=== PATIENT | male | born 1970 | race Caucasian/White ===

== ENCOUNTER 2016-09-05 16:36 | Emergency (ER) | payer OTHER ==
[~2016-09-05] VITALS: Ht 177.8 cm; Wt 76.8 kg
[~2016-09-05 16:36] MED LIST: CLON1TAB3 PO
[2016-09-05 16:41] VITALS: Ht 177.8 cm; Wt 76.8 kg
[2016-09-05] MEDS ORDERED: SODIUM CHLORIDE 0.9% 1000ML 1,000 ML IV STA (17:36)
[2016-09-05] MEDS ORDERED: OPTIRAY 320 IV PRN (17:45)
[2016-09-05 17:55] LABS: BASO ABS # 0.06 K/uL (0-0.2); COMPLETE YES; EOS % 5.1 %; HEMATOCRIT 41.3 % (42-52); LYMPH % 31.9 %; MEAN CELL VOLUME 85.5 fL (80-100); MEAN CORPUSCULAR HEMOGLOBIN 30.8 pg (25-34); MEAN CORPUSCULAR HGB CONC 36.1 g/dl (32-36); MEAN PLATELET VOLUME 9.7 fL (7.4-10.4); MONO % 4.8 %; NEUT % 57.2 %; PLATELET COUNT 194 K/uL (130-400); RED BLOOD COUNT 4.83 M/uL (4.7-6.1); WHITE BLOOD COUNT 6.26 K/uL (4.8-10.8)
[2016-09-05 18:05] LABS: URINE APPEARANCE CLEAR (CLEAR); URINE BILIRUBIN NEG (NEG); URINE COLOR YELLOW; URINE NITRITE NEG (NEG); UROBILINOGEN NEG (NEG); ZZUR CULT IF INDIC CLEAN CATCH NO
[2016-09-05 18:07] LABS: MANUAL MICROSCOPIC REQUIRED? NO; REVIEW REQ? NO
[2016-09-05 18:15] LABS: BUN/CREATININE RATIO 8.2 (10-20); CALCIUM 9.5 mg/dl (8.5-10.1); POTASSIUM 3.9 mmol/L (3.5-5.1)
[2016-09-05 18:18] LABS: ALB/GLOB RATIO 1.3 (0.9-2)
--- NOTE | 2016-09-05 18:49 | DIAGNOSTIC IMAGING REPORT ---
ABDOMEN AND PELVIS CT WITH IV CONTRAST CT DOSE: 271.98 mGy.cm HISTORY: Pain. Nausea. lower abdominal pain, nausea, weight loss TECHNIQUE: Multiaxial CT images of the abdomen and pelvis were performed following the use of intravenous contrast. COMPARISON STUDY: None. FINDINGS: The lung bases are clear. The liver, spleen, gallbladder, pancreas, kidneys, and adrenal glands are within normal limits. No bowel wall thickening or obstruction. The pelvic organs are unremarkable. No suspicious lytic or blastic osseous lesions. IMPRESSION: No significant abnormality identified within the abdomen or pelvis. Electronically signed by: Jacky Brown M.D. 09/05/2016 6:47 PM
--- NOTE | 2016-09-05 19:14 | EMERGENCY ROOM VISIT NOTE ---
History First contact with patient: 17:23 Chief Complaint: ABDOMINAL PAIN Stated Complaint: STABBING ABD/BACK PAIN, TIGHTNESS IN LEGS, FATIGUE Nursing Triage Summary: Pt c/o mid upper abd pain, RLQ abd pain and bilateral back pain as well as bilateral leg fatigue. Began 3 weeks ago. Associates nausea and diarrhea. Patient states he has lost 12 pounds but is able to eat. History of Present Illness The patient is a 46 year old male who presents to the Emergency Room with complaints of ongoing abdominal pain, leg cramping and fatigue. The patient reports that he has had intermittent intense abdominal pain over the past several weeks. He reports he has had pain in the mid abdomen as well as the lower abdomen. He also reports he has bilateral "kidney pain." He complains of intermittent cramping in both of his legs. He has alternating constipation and diarrhea. He reports associated nausea at times. He was seen by his primary care provider for these symptoms and reports he had blood work, urinalysis and a kidney ultrasound, all of which were normal. The patient was given a prescription for Bactrim due to urinary urgency. The patient does report that he has lost 12 pounds over the past several weeks. He has had to miss work several days due to his symptoms. He denies any chest pain, shortness of breath, blood in his stools, or vomiting. He denies any history of abdominal surgeries. He denies any urinary symptoms. Review of Systems A complete 10-point Review of Systems was discussed with the patient, with pertinent positives and negatives listed in the History of Present Illness. All remaining Review of Systems questions can be considered negative unless otherwise specified. Past Medical/Surgical History Surgical Problems: (1) H/O wisdom tooth extraction Family History No pertinent family history Social History Smoking Status: Former Smoker Marital Status: Housing Status: lives with family Occupation Status: employed Current/Historical Medications Scheduled PRN Clonazepam (Klonopin), 0.25 MG PO HS PRN for Sleep Allergies Coded Allergies: Aspirin (Verified Allergy, Intermediate, HIVES, 08/28/14) Ibuprofen (Verified Allergy, Intermediate, HIVES, 08/28/14) Physical Exam Vital Signs Date Time Temp Pulse Resp B/P Pulse Ox O2 Delivery O2 Flow Rate FiO2 09/05/16 19:26 36.8 86 16 147/97 97 09/05/16 18:36 89 16 107/66 96 09/05/16 18:13 86 18 141/89 99 09/05/16 16:41 36.8 111 18 163/96 98 Room Air Pain Rating (0-10): 2.0 Physical Exam VITALS: Vitals are noted on the nurse's note and reviewed by myself. Vital signs stable. GENERAL: This is a 46-year-old male, in no acute distress, nondiaphoretic, well- developed well-nourished. SKIN: Capillary reflex less than 2 seconds. HEENT: Normocephalic. PERRLA. EOMI. Nares patent. Mucous membranes moist. Neck is supple without nuchal rigidity. HEART: Regular rate and rhythm without murmurs gallops or rubs. LUNGS: Clear to auscultation bilaterally without wheezes, rales or rhonchi. No retractions or accessory muscle use. ABDOMEN: Positive bowel sounds x 4. Abdomen is soft with mild epigastric tenderness. There is no guarding or rebound tenderness. MUSCULOSKELETAL: Full range of motion and 5/5 strength throughout. NEURO: Patient was alert and oriented to person place and time. Normal sensation to light and sharp touch. Medical Decision & Procedures ER Provider Diagnostic Interpretation: ABDOMEN AND PELVIS CT WITH IV CONTRAST FINDINGS: The lung bases are clear. The liver, spleen, gallbladder, pancreas, kidneys, and adrenal glands are within normal limits. No bowel wall thickening or obstruction. The pelvic organs are unremarkable. No suspicious lytic or blastic osseous lesions. IMPRESSION: No significant abnormality identified within the abdomen or pelvis. Laboratory Results 09/05/16 17:45 Red Blood Count 4.83, Mean Corpuscular Volume 85.5, Mean Corpuscular Hemoglobin 30.8, Mean Corpuscular Hemoglobin Concent 36.1, Mean Platelet Volume 9.7, Neutrophils (%) (Auto) 57.2, Lymphocytes (%) (Auto) 31.9, Monocytes (%) (Auto) 4.8, Eosinophils (%) (Auto) 5.1, Basophils (%) (Auto) 1.0, Neutrophils # (Auto) 3.58, Lymphocytes # (Auto) 2.00, Monocytes # (Auto) 0.30, Eosinophils # (Auto) 0.32, Basophils # (Auto) 0.06 09/05/16 17:45 Test 09/05/16 17:45 09/05/16 17:50 White Blood Count 6.26 K/uL (4.8-10.8) Red Blood Count 4.83 M/uL (4.7-6.1) Hemoglobin 14.9 g/dL (14.0-18.0) Hematocrit 41.3 % (42-52) Mean Corpuscular Volume 85.5 fL (80-100) Mean Corpuscular Hemoglobin 30.8 pg (25-34) Mean Corpuscular Hemoglobin Concent 36.1 g/dl (32-36) Platelet Count 194 K/uL (130-400) Mean Platelet Volume 9.7 fL (7.4-10.4) Neutrophils (%) (Auto) 57.2 % Lymphocytes (%) (Auto) 31.9 % Monocytes (%) (Auto) 4.8 % Eosinophils (%) (Auto) 5.1 % Basophils (%) (Auto) 1.0 % Neutrophils # (Auto) 3.58 K/uL (1.4-6.5) Lymphocytes # (Auto) 2.00 K/uL (1.2-3.4) Monocytes # (Auto) 0.30 K/uL (0.11-0.59) Eosinophils # (Auto) 0.32 K/uL (0-0.5) Basophils # (Auto) 0.06 K/uL (0-0.2) RDW Standard Deviation 38.2 fL (36.4-46.3) RDW Coefficient of Variation 12.1 % (11.5-14.5) Immature Granulocyte % (Auto) 0.0 % Immature Granulocyte # (Auto) 0.00 K/uL (0.00-0.02) Anion Gap 8.0 mmol/L (3-11) Est Creatinine Clear Calc Drug Dose 97.3 ml/min Estimated GFR () 105.6 Estimated GFR (Non- 91.1 BUN/Creatinine Ratio 8.2 (10-20) Calcium Level 9.5 mg/dl (8.5-10.1) Total Bilirubin 0.4 mg/dl (0.2-1) Aspartate Amino Transf (AST/SGOT) 16 U/L (15-37) Alanine Aminotransferase (ALT/SGPT) 41 U/L (12-78) Alkaline Phosphatase 48 U/L (45-117) Total Creatine Kinase 76 U/L (39-308) Total Protein 7.5 gm/dl (6.4-8.2) Albumin 4.2 gm/dl (3.4-5.0) Globulin 3.3 gm/dl (2.5-4.0) Albumin/Globulin Ratio 1.3 (0.9-2) Lipase 139 U/L (73-393) Urine Color YELLOW Urine Appearance CLEAR (CLEAR) Urine pH 5.0 (4.5-7.5) Urine Specific [place] 1.000 (1.000-1.030) Urine Protein NEG (NEG) Urine Glucose (UA) NEG (NEG) Urine Ketones NEG (NEG) Urine Occult Blood NEG (NEG) Urine Nitrite NEG (NEG) Urine Bilirubin NEG (NEG) Urine Urobilinogen NEG (NEG) Urine Leukocyte Esterase NEG (NEG) Medications Administered Medications (Trade) Dose Ordered Sig/Trey Route Start Time Stop Time Status Last Admin Dose Admin Sodium Chloride (Nss 1000ml) 1,000 ml @ 999 mls/hr Q1H1M STAT IV 09/05/16 17:36 09/05/16 18:36 DC 09/05/16 17:48 999 MLS/HR Medical Decision Differential diagnosis includes appendicitis, gastroenteritis, colitis, malignancy, electrolyte abnormality, infection, among others. The patient was evaluated as above. Labs were drawn and IV access was obtained. Imaging studies were performed and read by radiology as above. The patient was medicated with 1 L normal saline solution. The patient was reassessed multiple times during their stay in the emergency department and remained in stable condition. The patient is a 46-year-old male who presents today complaining of abdominal pain, fatigue, cramping and other nonspecific symptoms. Labs revealed no leukocytosis, anemia or electrolyte abnormalities. Urinalysis was not suggestive of infection. CT scan of the abdomen and pelvis was performed without any acute findings. I am unsure the cause of the patient's symptoms. They have been ongoing for several weeks. At this point, I would certainly expect to see CT findings if the patient had an infectious source. The patient was encouraged to follow up with his primary care provider for ongoing evaluation of his symptoms. Based on the patient's presentation, lab results, and imaging studies, I feel the patient is stable for outpatient treatment. Discharge instructions were reviewed with the patient. The patient verbalized understanding of my assessment and treatment plan and was discharged home in good condition. Impression Primary Impression: Right lower quadrant abdominal pain Departure Information Dispostion Home / Self-Care Condition GOOD Referrals Ganesh Da Silva D.OMasha (PCP) Patient Instructions A Signature Page Additional Instructions Labs and CT scan today were normal. Follow-up with your primary care provider within 2-3 days for further evaluation of these symptoms. Return to the emergency department for any new/concerning symptoms.
[2016-09-05 19:26] VITALS: BP 147/97; PULSE 86; TEMP 36.8; O2SAT 97
[2017-03-22] MEDS ORDERED: NALT50TA5 PO (09:12)
[2017-07-11] MEDS ORDERED: PYRI100T4 PO (09:29)
[2017-07-11] MEDS ORDERED: GARL1000 (09:29)
[2017-07-11] MEDS ORDERED: VITAMIN E (09:29)
== END 2016-09-05 19:27 | disposition home or self-care (01) ==
LOC: C.EDB 16:38 → C.EDC 19:27
DX: R10.31 Right lower quadrant pain (principal); R25.2 Cramp and spasm; R53.83 Other fatigue; Z87.891 Personal history of nicotine dependence

== ENCOUNTER 2017-01-03 10:42 | Emergency (ER) | payer OTHER ==
[~2017-01-03] VITALS: Ht 177.8 cm; Wt 75.5 kg
[2017-01-03 10:45] VITALS: TEMP 36.7
[2017-01-03] MEDS ORDERED: CELE1CAP28 PO (11:07)
[2017-01-03] MEDS ORDERED: DFL150 PO (11:07)
[2017-01-03] MEDS ORDERED: RANI150T2 PO (11:07)
[2017-01-03 11:33] VITALS: O2SAT 99; Ht 177.8 cm; Wt 75.5 kg
[2017-01-03 11:40] LABS: BASO % 0.5 %; BASO ABS # 0.03 K/uL (0-0.2); COMPLETE YES; EOS % 4.5 %; HEMATOCRIT 43.5 % (42-52); IG% 0.2 %; LYMPH % 31.3 %; MEAN CELL VOLUME 87.3 fL (80-100); MEAN CORPUSCULAR HEMOGLOBIN 31.1 pg (25-34); MEAN CORPUSCULAR HGB CONC 35.6 g/dl (32-36); MEAN PLATELET VOLUME 9.9 fL (7.4-10.4); MONO % 4.3 %; NEUT % 59.2 %; PLATELET COUNT 184 K/uL (130-400); RED BLOOD COUNT 4.98 M/uL (4.7-6.1); WHITE BLOOD COUNT 5.75 K/uL (4.8-10.8)
[2017-01-03 11:54] LABS: INR 1.1 (0.9-1.1); PROTHROMBIN TIME (PATIENT) 11.3 SECONDS (9.0-12.0)
[2017-01-03 12:14] LABS: ALT/SGPT 37 U/L (12-78); AST/SGOT 13 U/L (15-37); BLOOD UREA NITROGEN 11 mg/dl (7-18); BUN/CREATININE RATIO 9.1 (10-20); CALCIUM 9.4 mg/dl (8.5-10.1); CARBON DIOXIDE 31 mmol/L (21-32); CHLORIDE 109 mmol/L (98-107); GLUCOSE 90 mg/dl (70-99); MAGNESIUM 2.3 mg/dl (1.8-2.4); SODIUM 144 mmol/L (136-145)
[2017-01-03 12:26] LABS: ALKALINE PHOSPHATASE 47 U/L (45-117)
[2017-01-03 12:49] LABS: URINE APPEARANCE CLEAR (CLEAR); URINE BILIRUBIN NEG (NEG); URINE COLOR YELLOW; URINE NITRITE NEG (NEG); URINE PH 7.5 (4.5-7.5); URINE SPECIFIC GRAVITY 1.007 (1.000-1.030); UROBILINOGEN NEG (NEG)
[2017-01-03 12:52] LABS: MANUAL MICROSCOPIC REQUIRED? NO; REVIEW REQ? NO
[2017-01-03 13:09] LABS: ESTIMATED AVERAGE GLUCOSE 100 mg/dl; HA1C FLAG Normal (Normal)
[2017-01-03 13:33] LABS: LYME DISEASE AB IGG NEG (NEG); LYME DISEASE AB IGM NEG (NEG)
[2017-01-03 14:24] VITALS: BP 133/84; PULSE 76; O2SAT 96
--- NOTE | 2017-01-03 16:35 | EMERGENCY ROOM VISIT NOTE ---
History Report prepared by Amanda: Camille Sullivan Under the Supervision of: Dr. Eduard Calvin M.D. First contact with patient: 11:20 Chief Complaint: OTHER COMPLAINT Stated Complaint: BURNING SKIN, NEUROPATHY, INSOMNIA, BLOOD SUGAR History of Present Illness The patient is a 46 year old male who presents to the Emergency Room with complaints of worsening neuropathy that started several months ago. The patient states that he previously only had neuropathy in his legs, but it has progressed to be throughout his whole body. He states that last night he experienced an episode of severe neuropathy, which he describes as "his body being cooked in oil." When he had the severe episode of neuropathy last night, he states that he also experienced "delirium." The patient is also experiencing hair loss on his calves, which he is unable to explain because he does not wear any clothes that rub tightly on his calves. He also states that he is experiencing blurry vision, chronic chest pain, chronic back pain due to herniated discs, abdominal pain in the mornings, green stools, and diarrhea. The patient states that his urine feels "10 degrees hotter" than usual whenever he urinates, which also started several months ago. Pt denies LOC, headache, fevers, chills, diaphoresis, visual changes, neck pain, breathing difficulties, nausea, vomiting, melena, hematochezia, weakness, lymphadenopathy, rash, or other complaints. The patient adds that he has been unable to work out as much as he used to. The patient has been worked up for these symptoms in the past. He has seen neurology and received an EMG that was unremarkable. The patient has also had MRIs of his brain and entire spine done within the last 6 months, which were all unremarkable. He states that no one has come up with a diagnosis for his symptoms. The patient adds that the reason they did one of the MRIs was because his one calf was smaller in size than the other. However, the doctor did not discuss anything about muscle biopsies with the patient. The patient states that he has had a normal stress test in the past and tested negative for lyme disease. His adds that he has received multiple other CT scans and ultrasounds. The patient expressed concern about diabetes because it runs in his family and his blood sugar was 205 the other night when he checked it 2 hours after eating. The patient and his also expressed concern about Grave' s Disease since the patient's father has it. Source of History: patient, spouse/significant other () Onset: several months ago Position: other (global) Quality: other (neuropathy) Timing: worsening Associated Symptoms: + abdominal pain (in the mornings), + back pain ( chronic due to herniated discs), + chest pain (chronic), + diarrhea, + urinary symptoms (urine is 10 degrees hotter) Note: "delirium", hair loss on calves, blurry vision, green stools Review of Systems See HPI for pertinent positives and negatives. A total of ten systems were reviewed and were otherwise negative. Past Medical & Surgical Surgical Problems: (1) H/O wisdom tooth extraction Family History No pertinent family history Social History Smoking Status: Never Smoker Marital Status: Housing Status: lives with family Occupation Status: employed Current/Historical Medications Scheduled Celecoxib (Celecoxib), 100 MG PO DAILY Fluconazole (Fluconazole), 150 MG PO WK Ranitidine HCl (Ranitidine HCl), 150 MG PO BID Scheduled PRN Clonazepam (Klonopin), 0.25 MG PO HS PRN for Sleep Allergies Coded Allergies: Aspirin (Verified Allergy, Intermediate, HIVES, 01/03/17) Ibuprofen (Verified Allergy, Intermediate, HIVES, 01/03/17) Physical Exam Vital Signs Date Time Temp Pulse Resp B/P Pulse Ox O2 Delivery O2 Flow Rate FiO2 01/03/17 14:24 76 16 133/84 96 Room Air 01/03/17 12:40 77 20 119/70 99 Room Air 01/03/17 11:47 68 01/03/17 11:33 99 Room Air 01/03/17 10:45 36.7 89 18 147/88 99 Room Air Physical Exam GENERAL: Awake, alert, well-appearing, in no distress HENT: Normocephalic, atraumatic. Oropharynx unremarkable. EYES: Normal conjunctiva. Sclera non-icteric. NECK: Supple. No nuchal rigidity. FROM. No JVD. RESPIRATORY: Clear to auscultation. CARDIAC: Regular rate, normal rhythm. Extremities warm and well perfused. Pulses equal. ABDOMEN: Soft, non-distended. No tenderness to palpation. No rebound or guarding. No masses. RECTAL: Deferred. MUSCULOSKELETAL: Chest examination reveals no tenderness. The back is symmetrical on inspection without obvious abnormality. There is no CVA tenderness to palpation. No joint edema. LOWER EXTREMITIES: Questionable weakness with hip flexion on left side. Calves are equal size bilaterally and non-tender. No edema. No discoloration. NEURO: Normal sensorium. No sensory or motor deficits noted. SKIN: No rash or jaundice noted. Medical Decision & Procedures Laboratory Results 01/03/17 11:30 Red Blood Count 4.98, Mean Corpuscular Volume 87.3, Mean Corpuscular Hemoglobin 31.1, Mean Corpuscular Hemoglobin Concent 35.6, Mean Platelet Volume 9.9, Neutrophils (%) (Auto) 59.2, Lymphocytes (%) (Auto) 31.3, Monocytes (%) (Auto) 4.3, Eosinophils (%) (Auto) 4.5, Basophils (%) (Auto) 0.5, Neutrophils # (Auto) 3.40, Lymphocytes # (Auto) 1.80, Monocytes # (Auto) 0.25, Eosinophils # (Auto) 0.26, Basophils # (Auto) 0.03 01/03/17 11:30 Test 01/03/17 11:14 01/03/17 11:30 01/03/17 11:59 01/03/17 12:40 Bedside Glucose 88 mg/dl (70-99) White Blood Count 5.75 K/uL (4.8-10.8) Red Blood Count 4.98 M/uL (4.7-6.1) Hemoglobin 15.5 g/dL (14.0-18.0) Hematocrit 43.5 % (42-52) Mean Corpuscular Volume 87.3 fL (80-100) Mean Corpuscular Hemoglobin 31.1 pg (25-34) Mean Corpuscular Hemoglobin Concent 35.6 g/dl (32-36) Platelet Count 184 K/uL (130-400) Mean Platelet Volume 9.9 fL (7.4-10.4) Neutrophils (%) (Auto) 59.2 % Lymphocytes (%) (Auto) 31.3 % Monocytes (%) (Auto) 4.3 % Eosinophils (%) (Auto) 4.5 % Basophils (%) (Auto) 0.5 % Neutrophils # (Auto) 3.40 K/uL (1.4-6.5) Lymphocytes # (Auto) 1.80 K/uL (1.2-3.4) Monocytes # (Auto) 0.25 K/uL (0.11-0.59) Eosinophils # (Auto) 0.26 K/uL (0-0.5) Basophils # (Auto) 0.03 K/uL (0-0.2) RDW Standard Deviation 39.4 fL (36.4-46.3) RDW Coefficient of Variation 12.3 % (11.5-14.5) Immature Granulocyte % (Auto) 0.2 % Immature Granulocyte # (Auto) 0.01 K/uL (0.00-0.02) Prothrombin Time 11.3 SECONDS (9.0-12.0) Prothromb Time International Ratio 1.1 (0.9-1.1) Activated Partial Thromboplast Time 26.5 SECONDS (21.0-31.0) Partial Thromboplastin Ratio 1.0 Anion Gap 4.0 mmol/L (3-11) Est Creatinine Clear Calc Drug Dose 81.1 ml/min Estimated GFR () 84.7 Estimated GFR (Non- 73.1 BUN/Creatinine Ratio 9.1 (10-20) Estimated Average Glucose 100 mg/dl Hemoglobin A1c 5.1 % (4.5-5.6) Calcium Level 9.4 mg/dl (8.5-10.1) Magnesium Level 2.3 mg/dl (1.8-2.4) Total Bilirubin 0.5 mg/dl (0.2-1) Direct Bilirubin 0.1 mg/dl (0-0.2) Aspartate Amino Transf (AST/SGOT) 13 U/L (15-37) Alanine Aminotransferase (ALT/SGPT) 37 U/L (12-78) Alkaline Phosphatase 47 U/L (45-117) Total Creatine Kinase 67 U/L (39-308) Creatine Kinase MB < 0.5 ng/ml (0.5-3.6) Troponin I < 0.015 ng/ml (0-0.045) Total Protein 7.9 gm/dl (6.4-8.2) Albumin 4.4 gm/dl (3.4-5.0) Lipase 147 U/L (73-393) Thyroid Stimulating Hormone (TSH) 2.070 uIu/ml (0.300-4.500) Free Thyroxine 1.05 ng/dl (0.80-1.60) Free Triiodothyronine 3.13 pg/ml (2.30-4.20) Lyme Disease IgG Antibody NEG (NEG) Lyme Disease IgM Antibody NEG (NEG) Creatine Kinase MB Ratio (0-3.0) Urine Color YELLOW Urine Appearance CLEAR (CLEAR) Urine pH 7.5 (4.5-7.5) Urine Specific [place] 1.007 (1.000-1.030) Urine Protein NEG (NEG) Urine Glucose (UA) NEG (NEG) Urine Ketones NEG (NEG) Urine Occult Blood NEG (NEG) Urine Nitrite NEG (NEG) Urine Bilirubin NEG (NEG) Urine Urobilinogen NEG (NEG) Urine Leukocyte Esterase NEG (NEG) Laboratory results reviewed by me ECG Indication: chest pain Rate (beats per minute): 83 Rhythm: normal sinus Findings: no acute ischemic change, left axis deviation, other (poor R wave progression anteriorly) ED Course 1143: The patient was evaluated in room C4. A complete history and physical exam was performed. 1410: I reevaluated the patient. Discussed results and discharge instructions: he verbalized understanding and agreement. The patient is ready for discharge. Medical Decision Triage Nursing notes reviewed. The patient's presentation and history were concerning for multiple complaints that were listed above. Etiologies such as metabolic, infection, hypo/hyperglycemia, electrolyte abnormalities, cardiac sources, intracerebral event, toxicologic, neurologic, as well as others were entertained. The patient was evaluated. He notes an extensive workup as an outpatient at this point without a diagnosis. The patient has had specialty consultation as well. The patient had blood work obtained. His CBC, coagulation studies, urinalysis, chemistry panel, magnesium, LFTs, cardiac markers, total CK, TSH, T4 , T3, and Lyme titers were negative. Hemoglobin A1c was also negative. There is no laboratory chemistry abnormality to point towards one specific cause for his multiple complaints. His examination did not provide any significant clues either. The patient notes feeling poorly and we had a long discussion. He has had an extensive evaluation by his and his 's account so far. Neurology did recommend a course of prednisone but the patient has not tried this yet. I told him this may be reasonable. I did suggest that he have a follow-up with tertiary care neurology as he feels like he is deteriorating and has not had an answer with local neurology. I talked him to call his primary office to get assistance with this. The patient also questioned possible endocrine or rheumatologic issues. I did ask him to follow up for that as well. I did tell him that this evaluation was done under emergent basis only and that he will need to have follow-up for this issue.I gave my usual and customary discussion regarding this issue. By the evaluation outlined above other emergent etiologies such as those listed in the differential, as well as others, were deemed relatively unlikely. The patient was informed about the findings as listed above. All questions were answered and he was pleased with the treatment. Return instructions were outlined and the patient was discharged in stable condition. The patient was referred to his PCP for follow-up and discussion for referrals as above for a recheck of the current condition. The chart was completed utilizing [employer] Speech voice recognition software. Grammatical errors, random word insertions, pronoun errors, and incomplete sentences are an occasional consequence of this system due to software limitations, ambient noise, and hardware issues. Any formal questions or concerns about the content, text, or information contained within the body of this dictation should be directly addressed to the physician for clarification. Impression Primary Impression: Weakness Additional Impression: evaluation for neuropathy Scribe Attestation The scribe's documentation has been prepared under my direction and personally reviewed by me in its entirety. I confirm that the note above accurately reflects all work, treatment, procedures, and medical decision making performed by me. Departure Information Dispostion Home / Self-Care Referrals Ganesh Da Silva D.O. (PCP) Forms HOME CARE DOCUMENTATION FORM, IMPORTANT VISIT INFORMATION, WORK / SCHOOL INSTRUCTIONS Patient Instructions My [facility] Additional Instructions Follow-up with your primary physician as discussed to get assistance with referral to [facility] neurology. Also discuss referral to rheumatology and endocrinology. It is reasonable to try the prescription of prednisone as prescribed by neurology. Rest and drink plenty of fluids. Activity as tolerated. Return to the ER for headache, passing out, difficulty breathing, fevers, numbness, tingling, worsening of your condition, or as needed. Problem Qualifiers
[2017-03-22] MEDS ORDERED: NALT50TA5 PO (09:12)
[2017-07-11] MEDS ORDERED: GARL1000 (09:29)
[2017-07-11] MEDS ORDERED: PYRI100T4 PO (09:29)
[2017-07-11] MEDS ORDERED: VITAMIN E (09:29)
== END 2017-01-03 14:50 | disposition home or self-care (01) ==
LOC: C.EDB 10:45 → C.EDC 14:50
DX: R53.1 Weakness (principal); G62.9 Polyneuropathy, unspecified; Z79.899 Other long term (current) drug therapy

== ENCOUNTER 2020-08-12 04:10 | Observation (INO) ==
[2020-08-12] MEDS ORDERED: LORazepam 1 MG/2 ML VIAL IV STA (04:30)
--- NOTE | 2020-08-12 04:38 | Emergency Department Note ---
History of Present Illness General Chief complaint: Cardiac Assessment Stated complaint: CHEST TIGHTNESS Time Seen by Provider: 08/12/20 04:20 History of Present Illness This 50-year-old presents to the ER complaining of exertional chest pain and dyspnea for the past week who recently got over Covid Location: Chest Quality: Pressure Severity: Moderate Duration: 1 week Timing: Started a week ago Context: Symptoms got worse and patient came in Modifying factors: better with rest; worse with activity Patient states since he got over Covid he has had exercise intolerance. He states when he goes up the steps or exercises he feels short of breath and gets chest pain. No prior cardiac disease. He does not smoke. Symptoms got worse and he came in. Patient denies abdominal pain, fever, chills, flulike illness. Home Medications Medication Instructions Recorded Confirmed Type hydrocortisone 10 mg PO QAM 08/29/19 08/12/20 History Vitamin A 5000 Iu 5,000 unit PO DAILY 07/26/20 08/12/20 History ascorbic acid (vitamin C) [Vitamin 1,000 - 3,000 mg PO DAILY 07/26/20 08/12/20 History C] cholecalciferol (vitamin D3) 250 mcg PO Q2D 07/26/20 08/12/20 History digestive enzymes 1 cap PO AC 07/26/20 08/12/20 History multivitamin 1 tab PO QAM 07/26/20 08/12/20 History clonazepam [Klonopin] 0.125 mg PO ONCE 08/12/20 08/12/20 History [id number]-rno-[id number]-ast 1 cap PO DAILY 08/12/20 08/12/20 History [krill oil] omega-3 fatty acids [Fish Oil 1,000 mg PO DAILY 08/12/20 08/12/20 History Concentrate] Allergies Allergy/AdvReac Type Severity Reaction Status Date / Time aspirin Allergy Intermediate HIVES Verified 08/12/20 04:59 ibuprofen Allergy Intermediate HIVES Verified 08/12/20 04:59 iopamidol Allergy Intermediate CONTRAST Verified 08/12/20 04:59 DYE--FELT LIKE SKIN WAS BURNING Past Med/Surg History Medical History COVID-19 Reportedly + 07/19/2020 History of Lyme disease Surgical History H/O wisdom tooth extraction Family History Father Multiple sclerosis Graves disease History of cholecystectomy Hemochromatosis Social History Smoking Status: Never smoker Preferred Language: Romanian Feels Safe at Home: Yes Review of Systems A total of 10 systems reviewed and were otherwise negative Physical Exam Vital Signs Vital Signs - 24 hr 08/12/20 04:24 08/12/20 04:26 08/12/20 04:30 Temperature 36.6 C Temperature Source Oral Pulse Rate 98 H 100 H 91 H Pulse Rate from SpO2 Sensor 96 H 90 Respiratory Rate 12 14 12 Respiratory Effort / Characteristics Non-Labored Spontaneous Respiratory Depth Normal Blood Pressure 155/95 H Blood Pressure Mean 115 Pulse Oximetry 99 100 98 Oxygen Delivery Method Room Air Room Air Room Air Sepsis New/Unexplained Change in Mental Status N/A Sepsis Action Taken by Nursing No Action Required 08/12/20 05:30 08/12/20 05:31 Temperature Temperature Source Pulse Rate 74 77 Pulse Rate from SpO2 Sensor 76 77 Respiratory Rate 15 17 Respiratory Effort / Characteristics Respiratory Depth Blood Pressure 127/87 Blood Pressure Mean 96 Pulse Oximetry 95 98 Oxygen Delivery Method Room Air Room Air Sepsis New/Unexplained Change in Mental Status Sepsis Action Taken by Nursing VITALS: Vitals are noted on the nurse's note and reviewed by myself. Vital signs stable. GENERAL: Anxious appearing male, in no acute distress, nondiaphoretic, well- developed well-nourished. SKIN: Capillary reflex less than 2 seconds. HEENT: Normocephalic. PERRLA. EOMI. Nares patent. Mucous membranes moist. Neck is supple without nuchal rigidity. HEART: Regular rate and rhythm LUNGS: Clear to auscultation bilaterally without wheezes, rales or rhonchi. No retractions or accessory muscle use. ABDOMEN: Positive bowel sounds x 4. Normal tympanic percussion. Soft, nontender, without masses or organomegaly. Lofton sign negative. No guarding or rebound tenderness. MUSCULOSKELETAL: No gross musculoskeletal defects. NEURO: Patient was alert and oriented to person place and time. No focal neurological deficits. Course Administered Medications Discontinued Medications Diphenhydramine HCl (Diphenhydramine 50 Mg/Ml Vial) 25 mg IV NOW STA Stop: 08/12/20 04:59 Last Admin: 08/12/20 05:02 Dose: 25 mg Documented by: [id number] Lorazepam (Ativan) 1 mg in 2 mls @ 2 mls/min IV NOW STA Stop: 08/12/20 04:31 Last Admin: 08/12/20 04:42 Dose: 2 mls/min Documented by: [id number] Ioversol (Optiray 320 125ml) 125 ml IV ONCE ONE Stop: 08/12/20 05:26 Last Admin: 08/12/20 05:25 Dose: 117 ml Documented by: [id number] Potassium Chloride (Potassium Chloride 10 Meq Tabcr) 40 meq PO NOW STA Stop: 08/12/20 05:08 Last Admin: 08/12/20 05:35 Dose: 40 meq Documented by: [id number] Medical Decision Making Medical Records Attestation: I reviewed the patient's medical records. Home Medications Current Medication List: was personally reviewed by me Laboratory Data Attestation: I reviewed the patient's lab results. Result diagrams: 08/12/20 04:00 08/12/20 04:00 Lab Results 08/12/20 08/12/20 08/12/20 Range/Units 04:00 04:00 04:00 WBC 6.95 (4.8-10.8) K/uL RBC 4.71 (4.7-6.1) M/uL Hgb 14.3 (14.0-18.0) g/dL POC Hgb (14.0-18.0) g/dl Hct 41.6 L (42-52) % POC Hct (42-52) % MCV 88.3 (80-100) fL MCH 30.4 (25-34) pg MCHC 34.4 (32-36) g/dL RDW Std Deviation 39.8 (36.4-46.3) fL RDW Coeff of Zachariah 12.4 (11.5-14.5) % Plt Count 211 (130-400) K/uL MPV 10.9 H (7.4-10.4) fL Immature Gran % (Auto) 0.3 % Neut % (Auto) 41.1 % Lymph % (Auto) 46.8 % Mckean % (Auto) 7.2 % Eos % (Auto) 4.0 % Baso % (Auto) 0.6 % Neut # (Auto) 2.86 (1.4-6.5) K/uL Lymph # (Auto) 3.25 (1.2-3.4) K/uL Mckean # (Auto) 0.50 (0.11-0.59) K/uL Eos # (Auto) 0.28 (0-0.5) K/uL Baso # (Auto) 0.04 (0-0.2) K/uL Immature Gran # (Auto) 0.02 (0.00-0.02) K/uL PT 10.4 (9.0-12.0) Seconds INR 1.0 (0.9-1.1) APTT 26.3 (21.0-31.0) Seconds PTT Ratio 0.9 POC Sodium (135-144) mmol/L Sodium 139 (136-145) mmol/L POC Potassium (3.3-5.0) mmol/L Potassium 3.1 L (3.5-5.1) mmol/L POC Chloride (101-112) mmol/L Chloride 105 (98-107) mmol/L Carbon Dioxide 29 (21-32) mmol/L POC Total CO2 (24-31) mmol/L Anion Gap 5.0 (3-11) POC Anion Gap (16-25) mmol/L POC BUN (7-18) mg/dl BUN 12 (7-18) mg/dl Creatinine 1.12 (0.6-1.4) mg/dl POC Creatinine (0.6-1.3) mg/dl Est Cr Clr Drug Dosing 83.3 ml/min Est GFR ( Amer) 89.5 Est GFR (Non-Af Amer) 77.3 BUN/Creatinine Ratio 11.1 (10-20) Glucose 117 H (70-99) mg/dl POC Glucose (other) (70-99) mg/dl Calcium 8.9 (8.5-10.1) mg/dl POC Ioniz Calcium Jed (1.12-1.32) mmol/l Total Bilirubin 0.5 (0.2-1) mg/dl AST 16 (15-37) U/L ALT 40 (12-78) U/L Alkaline Phosphatase 54 (45-117) U/L Troponin I < 0.015 (0-0.045) ng/ml Total Protein 7.4 (6.4-8.2) gm/dl Albumin 3.9 (3.4-5.0) gm/dl Globulin 3.5 (2.5-4.0) gm/dl Albumin/Globulin Ratio 1.1 (0.9-2) Lipase 212 (73-393) U/L 08/12/20 Range/Units 04:53 WBC (4.8-10.8) K/uL RBC (4.7-6.1) M/uL Hgb (14.0-18.0) g/dL POC Hgb 12.6 L (14.0-18.0) g/dl Hct (42-52) % POC Hct 37 L (42-52) % MCV (80-100) fL MCH (25-34) pg MCHC (32-36) g/dL RDW Std Deviation (36.4-46.3) fL RDW Coeff of Zachariah (11.5-14.5) % Plt Count (130-400) K/uL MPV (7.4-10.4) fL Immature Gran % (Auto) % Neut % (Auto) % Lymph % (Auto) % Mckean % (Auto) % Eos % (Auto) % Baso % (Auto) % Neut # (Auto) (1.4-6.5) K/uL Lymph # (Auto) (1.2-3.4) K/uL Mckean # (Auto) (0.11-0.59) K/uL Eos # (Auto) (0-0.5) K/uL Baso # (Auto) (0-0.2) K/uL Immature Gran # (Auto) (0.00-0.02) K/uL PT (9.0-12.0) Seconds INR (0.9-1.1) APTT (21.0-31.0) Seconds PTT Ratio POC Sodium 140 (135-144) mmol/L Sodium (136-145) mmol/L POC Potassium 3.3 (3.3-5.0) mmol/L Potassium (3.5-5.1) mmol/L POC Chloride 103 (101-112) mmol/L Chloride (98-107) mmol/L Carbon Dioxide (21-32) mmol/L POC Total CO2 28 (24-31) mmol/L Anion Gap (3-11) POC Anion Gap 13.0 L (16-25) mmol/L POC BUN 13 (7-18) mg/dl BUN (7-18) mg/dl Creatinine (0.6-1.4) mg/dl POC Creatinine 1.0 (0.6-1.3) mg/dl Est Cr Clr Drug Dosing ml/min Est GFR ( Amer) Est GFR (Non-Af Amer) BUN/Creatinine Ratio (10-20) Glucose (70-99) mg/dl POC Glucose (other) 108 H (70-99) mg/dl Calcium (8.5-10.1) mg/dl POC Ioniz Calcium Jed 1.18 (1.12-1.32) mmol/l Total Bilirubin (0.2-1) mg/dl AST (15-37) U/L ALT (12-78) U/L Alkaline Phosphatase (45-117) U/L Troponin I (0-0.045) ng/ml Total Protein (6.4-8.2) gm/dl Albumin (3.4-5.0) gm/dl Globulin (2.5-4.0) gm/dl Albumin/Globulin Ratio (0.9-2) Lipase (73-393) U/L Imaging Data Attestation: I personally reviewed and interpreted this imaging study as follows: MDM Narrative Prior records/ancillary studies reviewed. Triage Nursing notes reviewed. The patient's history was concerning for chest pain. Differential diagnosis: Etiologies such as cardiac ischemia, aortic dissection, pulmonary embolism, pneumonia, pneumothorax, musculoskeletal, infections, pericarditis, myocarditis, esophageal rupture, gastrointestinal, as well as others were entertained. Physical examination: As above. ER treatment provided: An order was placed for continuous cardiac monitoring. The monitor shows a rate of 60-1 10 with a sinus rhythm. Ativan On reassessment the patient felt better. Diagnostic interpretation by me: The electrocardiogram was negative for pathologic change. Normal sinus, normal intervals, left axis deviation, no acute ST-T wave changes. Impression normal sinus rhythm with a left axis deviation interpreted by myself. EKG ordered for chest pain I think arrhythmia is unlikely. EKG shows normal sinus rhythm with no interval abnormalities such as QT prolongation or WPW. There are no findings to suggest Brugada syndrome. Cardiac monitoring in the emergency department reveals no tachycardic or bradycardic dysrhythmia. Hypertrophic cardiomyopathy was considered but there are no clear historical elements pointing toward this. EKG is not suggestive. The QRS voltage is not extremely large and there are no suggestive Q waves. The labs revealed hypokalemia and this was replaced orally. Negative troponin Imaging studies: Chest x-ray with no acute consolidation, pneumothorax or free air per my interpretation CTA CHEST: No CT evidence for pulmonary embolism. No thoracic aortic aneurysm or dissection. No acute parenchymal lung disease. No pathologic adenopathy within the chest. Radiologist: Leon Stewart M.D. HEART SCORE: Hx: high/mod/low suspicion: 1 ECG: ST depression/nonspecific changes/normal: 0 Age: Greater than 65/45-64/less than 45: 1 Risk factors: (Hypertension, hyperlipidemia, diabetes, coronary disease, tobacco use, cocaine use): 0 Troponin: Greater than 2 times normal limits/1-2 times normal limits/normal: 0 Total: 2 Consultation: A consultation was placed with the hospitalist. The case was discussed and diagnostics were reviewed. The patient was evaluated in the ER for further treatment. Exam and history seem consistent with chest pain. Symptoms are exertional. This could be related to his recent Covid infection. Medicine was consulted. He will be evaluated for possible admission. CTA was negative. By the evaluation outlined above emergent etiologies such as aortic dissection, pulmonary embolism, pneumonia, pneumothorax, gastrointestinal, as well as others were deemed relatively unlikely. The pt informed about the findings as listed above. All questions were answered and pleased with the treatment. The chart was completed utilizing [employer] Speech voice recognition software. Grammatical errors, random word insertions, pronoun errors, and incomplete sentences are an occassional consequence of this system due to software limitations, ambient noise, and hardware issues. Any formal questions or concerns about the content, text, or information contained within the body of this dictation should be directly addressed to the physician assistant chief engineer for clarification. Impression & Plan Chest pain Discharge Plan Visit Data Chief Complaint: Cardiac Assessment Stated Complaint: CHEST TIGHTNESS ED Provider: Christine Tao ED Midlevel Provider: Bonita Griffith Discharge Problem: Chest pain Patient Disposition: Being Evaluated by Hospitalist Condition: Good Forms Stand Alone Forms: [facility] Prescriptions Prescriptions: No Action hydrocortisone 5 mg tablet 10 mg PO QAM RF: 0 multivitamin Tablet 1 tab PO QAM RF: 0 digestive enzymes Capsule 1 cap PO AC RF: 0 ascorbic acid (vitamin C) [Vitamin C] 1,000 mg Tablet 1,000 - 3,000 mg PO DAILY RF: 0 cholecalciferol (vitamin D3) 250 mcg (10,000 unit) Tablet 250 mcg PO Q2D RF: 0 Vitamin A 5000 Iu 5,000 unit PO DAILY RF: 0 omega-3 fatty acids [Fish Oil Concentrate] 1,000 mg Capsule 1,000 mg PO DAILY RF: 0 [id number]-aw-[id number]-lhb-[id number]-ast [krill oil] 1,438-030-42-80 mg Capsule 1 cap PO DAILY RF: 0 clonazepam [Klonopin] 1 mg Tablet 0.125 mg PO ONCE RF: 0 Referrals Referrals: Ganesh Da Silva DO [Primary Care Provider] - Discharge Problem: Chest pain Qualifiers: Chest pain type: unspecified Qualified Code(s): R07.9 - Chest pain, unspecified
[2020-08-12 04:45] LABS: Basophils # (auto) 0.04 K/uL (0-0.2); Basophils % (auto) 0.6 %; Eosinophils # (auto) 0.28 K/uL (0-0.5); Hematocrit (blood only) 41.6 % (42-52); Hemoglobin 14.3 g/dL (14.0-18.0); Immature Granulocytes # (auto) 0.02 K/uL (0.00-0.02); Immature Granulocytes % (auto) 0.3 %; Lymphocytes # (auto) 3.25 K/uL (1.2-3.4); Lymphocytes % (auto) 46.8 %; Mean Corpuscular Hemoglobin 30.4 pg (25-34); Mean Corpuscular Hgb Conc 34.4 g/dL (32-36); Mean Corpuscular Volume 88.3 fL (80-100); Mean Platelet Volume 10.9 fL (7.4-10.4); Monocytes % (auto) 7.2 %; Neutrophils # (auto) 2.86 K/uL (1.4-6.5); Neutrophils % (auto) 41.1 %; Platelet Count 211 K/uL (130-400); RDW Coefficient of Variation 12.4 % (11.5-14.5); RDW Standard Deviation 39.8 fL (36.4-46.3); Red Blood Count 4.71 M/uL (4.7-6.1); White Blood Count 6.95 K/uL (4.8-10.8)
[2020-08-12 04:51] LABS: Partial Thromboplastin Ratio 0.9; Partial Thromboplastin Time 26.3 Seconds (21.0-31.0); Prothrombin Time 10.4 Seconds (9.0-12.0)
[2020-08-12 04:54] LABS: Alanine Aminotransferase 40 U/L (12-78); Albumin Level 3.9 gm/dl (3.4-5.0); Aspartate Aminotransferase 16 U/L (15-37); BUN Creatinine Ratio 11.1 (10-20); Blood Urea Nitrogen 12 mg/dl (7-18); Calcium 8.9 mg/dl (8.5-10.1); Carbon Dioxide 29 mmol/L (21-32); Chloride 105 mmol/L (98-107); Creatinine Clr Calc Pharmacy 83.3 ml/min; Est GFR (African American) 89.5; Est GFR (Non-African American) 77.3; Glucose 117 mg/dl (70-99); Lipase 212 U/L (73-393); Potassium 3.1 mmol/L (3.5-5.1); Sodium 139 mmol/L (136-145)
[2020-08-12] MEDS ORDERED: diphenhydrAMINE 50 MG/ML VIAL IV STA (04:58)
[2020-08-12 04:59] LABS: Albumin Globulin Ratio 1.1 (0.9-2); Alkaline Phosphatase 54 U/L (45-117); Bilirubin,Total 0.5 mg/dl (0.2-1); Globulin 3.5 gm/dl (2.5-4.0); Total Protein 7.4 gm/dl (6.4-8.2); Troponin I < 0.015 ng/ml (0-0.045)
[2020-08-12 05:05] LABS: iSTAT Hemoglobin 12.6 g/dl (14.0-18.0); iSTAT Ionized Calcium 1.18 mmol/l (1.12-1.32); iSTAT Potassium 3.3 mmol/L (3.3-5.0)
[2020-08-12] MEDS ORDERED: POTASSIUM CHLORIDE 10 MEQ TABCR PO STA (05:07)
[2020-08-12] MEDS ORDERED: OPTIRAY 320 125ml IV ONE (05:25)
--- NOTE | 2020-08-12 07:02 | XRay Report ---
XR chest 1V portable CLINICAL HISTORY: Atypical chest pain COMPARISON STUDY: No previous studies for comparison. FINDINGS: The cardiac and mediastinal contours are normal. There is no evidence of focal pulmonary co nsolidation. There is no evidence of failure. No pleural effusions are visualized.[Slight prominence of the left basilar markings likely represents a summation IMPRESSION: No active disease in the chest . ACT 112: Negative or not required by law. Electronically signed by: Alonzo Kenney M.D. 08/12/2020 7:01 AM
--- NOTE | 2020-08-12 07:19 | CT Scan Report ---
CT ANGIOGRAM OF THE CHEST CLINICAL HISTORY: Atypical chest pain. Possible pulmonary embolism. Shortness of breath. COMPARISON STUDY: Chest x-ray dated 08/12/2020 TECHNIQUE: Following the IV administration of 117 mL of Optiray-320, CT angiogram of the thorax was p erformed from the thoracic inlet to the lung bases utilizing the pulmonary embolus protocol. Images a re reviewed in the axial, sagittal, and coronal planes. IV contrast was administered without complica tion. MIP imaging was performed. A dose lowering technique was utilized adhering to the principles o f ALARA. CT DOSE: 554.58 mGycm FINDINGS: No pathologically enlarged axillary mediastinal or hilar lymph nodes were visualized. There was no evidence of thoracic aortic dilatation. There were no pulmonary artery filling defects to indicate acute pulmonary embolism. No pleural effusions are visualized. There is no focal pulmonary consolidation. IMPRESSION: 1. No acute intrathoracic findings 2. No evidence of acute pulmonary embolism 3. No evidence of focal pulmonary consolidation ACT 112: Negative or not required by law. Electronically signed by: Alonzo Kenney M.D. 08/12/2020 7:17 AM
--- NOTE | 2020-08-12 08:59 | History and Physical Report ---
DATE OF ADMISSION: 08/12/2020 CHIEF COMPLAINT: Chest pain. HISTORY OF PRESENT ILLNESS: This is a 50-year-old male with past medical history significant for hyperlipidemia, ADHD, diabetic polyneuropathy, history of Lyme disease, recent diagnosis of COVID comes with chest pain. As per the patient, patient was diagnosed with COVID on 07/13/2020, but as per [facility] records, he was diagnosed on 07/20/2020 .Intially had some mild loss of sense of smell or taste and severe headaches and that's all resolved. His appetite is good, but he is having ongoing chest pain and shortness of breath. The patient says he started going to work about 1 week ago, but still is getting sweating, shortness of breath and chest pain with exertion and also palpitations. He feels that his heart rhythm is not regular. Last night, he woke up in the middle of night with heart pounding and chest pain and he was sweating and decided to come to the ER. In the ER, he received Ativan and Benadryl and his pain is somewhat relieved. Currently resting comfortably and hemodynamically stable. Labs were fine and CTA of chest showed no PE or any infiltrates. He had knee pain few days back, but that is resolved. Climbing steps 1 flight of stairs make him very short of breath and chest pain. The pain starts in left side of chest radiates to left arm and it takes about almost 2 hours to come back to normal, which is worrying him and he feels that he has 80-year-old heart now. Every morning he feels nauseous. No abdominal pain. Normal bowel and bladder movements. Denies any blood in stools or black stools. Currently, no headache, no blurred vision, no earache, no runny nose, no sore throat. Initially had some difficulty swallowing when he had COVID, but it is resolved now. ALLERGIES: ASPIRIN, IBUPROFEN. PAST MEDICAL HISTORY: As mentioned above. PAST SURGICAL HISTORY: Dental surgery, EGDs. MEDICATIONS: Hydrocortisone 10 mg p.o. daily, does not take regularly. It effects his face, so we will culture him for some mole disease. FAMILY HISTORY: Significant for father has allergies, blood disorder, diabetes, thyroid disorder. Sister has cancer. Paternal grandfather had heart disorder. SOCIAL HISTORY: . No smoking, no alcohol, no drug use. REVIEW OF SYMPTOMS: As per HPI. Rest of review of systems negative. PHYSICAL EXAMINATION: GENERAL: The patient is of moderate build, not in acute distress. VITAL SIGNS: Temperature 36.6, pulse 76, respiratory rate 13, blood pressure 128/89, oxygen 97% on room air. HEENT: No pallor, no icterus. Pupils equal, round, and reactive to light. Oral mucosa moist. NECK: No neck masses seen. CARDIOVASCULAR: S1, S2 heard, regular rate and rhythm, no murmur, no gallop. RESPIRATORY SYSTEM: Normal AP diameter. No accessory muscle use. No wheezing, no crackles. ABDOMEN: Soft, bowel sounds present, nontender, nondistended. CENTRAL NERVOUS SYSTEM: Cranial nerves II-XII grossly intact, nonfocal. EXTREMITIES: No edema, no erythema. LABORATORY DATA: WBC 6.9, hemoglobin 14.3, hematocrit 41.6, platelets 211. PT 10.4, INR 1, APTT 26.3. Sodium 139, potassium 3.1, chloride 105, bicarbonate 29, BUN 12, creatinine 1.1, serum glucose 117, calcium 8.9, total bilirubin 0.5, AST 60 and ALT 40, alkaline phosphatase 54. Troponin I less than 0.015. Lipase 212. IMAGING: Chest x-ray, no acute findings. CTA of the chest, preliminary report, no evidence for pulmonary embolism, no thoracic aortic aneurysm or dissection. No acute parenchymal lung disease. No pathologic adenopathy within the chest. EKG: Poor quality data, but normal sinus rhythm, rate of 98, no significant change was found. ASSESSMENT AND PLAN: This is a 50-year-old male, who was recently diagnosed with COVID, comes with ongoing chest pain, and shortness of breath with exertion . 1. Chest pain, shortness of breath on exertion diagnosed with COVID as per patient on 07/13/2020, but as per EPIC he was diagnosed on 07/20/2020. Initial workup is negative. Rule out acute coronary syndrome because of his age and will do serial enzymes, echocardiogram. We will keep him n.p.o. and consult cardiology for further recommendation. The patient is worried about any COVID heart complications. We will follow echocardiogram and await cardiac input. CTA of the chest is unremarkable. 2. Recent diagnosis of COVID-19. Currently, labs are unremarkable. No lymphopenia. No infiltrates onct chest and chest x-ray. We will follow D- dimer levels with the next labs. We will recheck his COVID . 3. History of Lyme disease. The patient says when he was diagnosed with Lyme disease 3 years ago and at that time he also had gotten adrenal insufficiency and his Lyme doctor put him on hydrocortisone. He takes 5-10 mg as needed whenever he feels low. 4. Deep venous thrombosis prophylaxis, sequential compression devices. DISPOSITION: Observe in tele floor. Expect discharge home and follow with his family doctor. NEIL
[2020-08-12] MEDS ORDERED: ACETAMINOPHEN 325 MG TAB PO PRN (12:47)
[2020-08-12] MEDS ORDERED: NITROGLYCERIN SL 0.4 MG/TAB TAB SL PRN (12:47)
[2020-08-12] MEDS ORDERED: ONDANSETRON INJ 2 MG/ML 2 ML VIAL IV PRN (12:47)
[2020-08-12 13:23] LABS: D Dimer < 190 ug/L FEU (0-500)
[2020-08-12] MEDS ORDERED: MoRPHine SULFATE 4 MG/ML 1 ML CARP\\VIAL IV STA (14:14)
--- NOTE | 2020-08-12 14:47 | Electrocardiogram Report ---
Test Reason : Blood Pressure : / mmHG Vent. Rate : 098 BPM Atrial Rate : 098 BPM P-R Int : 150 ms QRS Dur : 098 ms QT Int : 378 ms P-R-T Axes : 044 -48 059 degrees QTc Int : 482 ms Poor data quality, interpretation may be adversely affected Normal sinus rhythm Left axis deviation Abnormal ECG When compared with ECG of 29-AUG-2019 11:43, No significant change was found Confirmed by Tomas Stacy ([id number]) on 08/12/2020 2:47:07 PM Referred By: REFERRED SELF Confirmed By:Tomas Stacy
[2020-08-12] MEDS ORDERED: MIDAZOLAM HCL 1 MG/ML 2ML VIAL ONE (16:23)
[2020-08-12] MEDS ORDERED: fentaNYL citrate 100 MCG/2 ML VIAL ONE (16:23)
[2020-08-12] MEDS ORDERED: NITROGLYCERIN/D5W 100MCG/ML 20ML SYR ONE (16:24)
[2020-08-12] MEDS ORDERED: niCARdipine HCL INJ 2.5 MG/ML 10 ML AMP ONE (16:24)
[2020-08-12] MEDS ORDERED: HEPARIN (PORCINE) 1000 UNIT/ML 10 ML (CATH LAB USE ONLY) ONE (16:24)
--- NOTE | 2020-08-12 16:28 | Cardiology Consultation ---
Date of Consultation August 12, 2020 Assessment & Plan (1) Chest pain: (2) COVID-19: (3) Hypertension: (4) Concentric left ventricular hypertrophy: (5) Hyperlipidemia: (6) ADHD: (7) Anxiety: At this point the patient's ischemic work-up is unremarkable but given his ongoing symptoms I do believe further ischemic evaluation is warranted. Especially in the light of his recent COVID-19 infection and the concern for endothelial proliferation and possible thrombus formation. And I recommend proceeding directly to cardiac catheterization. This was discussed and explained to the patient at great lengths and in great detail, however, he states he preferred to talk to his first. After discussing with his he is agreeable to proceed with cardiac catheterization. He does have a documented allergy to contrast and will receive pretreatment. History of Present Illness Reason for Consultation: chest pain Requesting Physician: Dr. Deleon Attending Physician: Jo Deleon MD History of Present Illness I saw Mr. Mahoney in cardiology consultation today August 12, 2020. He is a 50-year-old gentleman who is not routinely follow with cardiology. He presented to [facility] emergency department with complaints of chest pain. He states he was diagnosed with COVID-19 on July 20 and at that time was suffering from fevers and myalgias. He then completed a 2-week recovery and upon returning to work started noticing he was having chest discomfort. He states that first he noticed chest discomfort with exertion he described it as a significant substernal pressure across the left precordium that would radiate up into his left shoulder, left arm and left neck. This will be associated with shortness of breath and occasional diaphoresis. He states that over the next week the discomfort started happening more often with less and less activity. It culminated last evening when he woke up at 4 AM with 9 out of 10 chest discomfort that was associated with a significant cold sweat, shortness of breath and a sensation of his heart racing. He presented to the emergency department where initial work-up was unremarkable and he was admitted to telemetry. During admission his chest discomfort has persisted and sublingual n itroglycerin caused him to become tachycardic into the 140s sinus and developed dizziness. Allergies Allergy/AdvReac Type Severity Reaction Status Date / Time aspirin Allergy Intermediate HIVES Verified 08/12/20 04:59 ibuprofen Allergy Intermediate HIVES Verified 08/12/20 04:59 iopamidol Allergy Intermediate CONTRAST Verified 08/12/20 04:59 DYE--FELT LIKE SKIN WAS BURNING Home Medications Medication Instructions Recorded Confirmed Type hydrocortisone 10 mg PO QAM 08/29/19 08/12/20 History Vitamin A 5000 Iu 5,000 unit PO DAILY 07/26/20 08/12/20 History multivitamin 1 tab PO QAM 07/26/20 08/12/20 History omega-3 fatty acids [Fish Oil 1,000 mg PO DAILY 08/12/20 08/12/20 History Concentrate] Patient History Medical History COVID-19 Reportedly + 07/19/2020 History of Lyme disease Surgical History H/O wisdom tooth extraction Family History Father Multiple sclerosis Graves disease History of cholecystectomy Hemochromatosis Social History Smoking Status: Former smoker Hx Alcohol Use: Yes Alcohol type: wine Hx Substance Use: No Preferred Language: Kiswahili Communication Ability: Effective Peer Specialist Required: No Beliefs That Will Affect Care: Restorationism marital status: Current Living Situation: Spouse and Family Other Information That Helps Us Care for You: No Feels Safe at Home: Yes Safety Concerns: Afraid for Self Review of Systems Review of Systems: All systems reviewed & are unremarkable except as noted in HPI & below Physical Exam Physical Exam: General: Awake, alert and oriented x 3. No acute distress. HEENT: Normocephalic, atraumatic. Pupils equal, round and reactive to light and accommodation. Extraocular muscles are intact. Anicteric sclera. Moist mucous membranes. Neck: No JVD. No bruit. Cardiovascular: Regular. Positive S-4. Normal S-1 and S-2. No S-3. No mu rmurs or rubs. Pulmonary: Clear to auscultation B/L. No rales, rhonchi or wheezing Abdomen: Bowel sounds x 4, soft. No rebound, guarding or tenderness. No organomegaly. Extremities: No clubbing, cyanosis or edema. +2 pedal pulses bilaterally. Skin: Warm and dry. Results & Data ([facility]) Vital Signs (Past 12 Hours) Vital Signs Temp Pulse Pulse Resp BP BP Pulse Ox 08/12/20 16:21 96 H 20 151/90 H 99 08/12/20 12:47 36.9 C 103 H 18 133/97 98 08/12/20 10:30 95 H 16 152/93 H 98 08/12/20 10:00 88 14 138/89 97 08/12/20 09:30 70 19 126/80 100 08/12/20 09:00 87 13 154/94 H 98 08/12/20 08:30 86 16 135/90 98 08/12/20 08:00 67 15 103/79 93 08/12/20 07:30 70 14 118/78 93 08/12/20 07:00 75 15 131/83 96 08/12/20 06:41 76 13 128/89 97 08/12/20 06:40 76 14 97 08/12/20 06:01 68 14 97 08/12/20 06:00 80 12 125/84 95 08/12/20 05:32 74 14 97 08/12/20 05:31 77 17 127/87 98 08/12/20 05:30 74 15 95 08/12/20 04:30 91 H 12 98 (1) Chest pain Chest pain type: unspecified Qualified Code(s): R07.9 - Chest pain, unspecified
[2020-08-12] MEDS ORDERED: diphenhydrAMINE 50 MG/ML VIAL ONE (16:42)
[2020-08-12] MEDS ORDERED: methylPREDNISolone 125 MG/2 ML VIAL ONE (16:42)
--- NOTE | 2020-08-12 17:26 | Pre Anesthesia Assessment ---
Date of Service August 12, 2020 Pre Sedation Assessment Vital Signs Temp Pulse Pulse Resp BP BP Pulse Ox 08/12/20 16:21 96 H 20 151/90 H 99 08/12/20 12:47 98.4 F 103 H 18 133/97 98 08/12/20 10:30 95 H 16 152/93 H 98 08/12/20 10:00 88 14 138/89 97 08/12/20 09:30 70 19 126/80 100 08/12/20 09:00 87 13 154/94 H 98 08/12/20 08:30 86 16 135/90 98 08/12/20 08:00 67 15 103/79 93 08/12/20 07:30 70 14 118/78 93 08/12/20 07:00 75 15 131/83 96 08/12/20 06:41 76 13 128/89 97 08/12/20 06:40 76 14 97 08/12/20 06:01 68 14 97 08/12/20 06:00 80 12 125/84 95 08/12/20 05:32 74 14 97 08/12/20 05:31 77 17 127/87 98 08/12/20 05:30 74 15 95 08/12/20 04:30 91 H 12 98 08/12/20 04:26 97.9 F 100 H 14 155/95 H 100 08/12/20 04:24 98 H 12 99 Cardiovascular RRR, no murmur, no edema Respiratory normal respiratory effort, lungs clear to auscultation Pre-Sedation Airway Assessment Smoking Status: Former smoker Hx Sleep Apnea: No Hx Difficult Intubation: No Short, Thick Neck: No Thyromental Distance: > or= 3.5 Finger Breadths Oral Cavity: + WNL Mallampati Class: III ASA: ASA2 Procedure Planning Contraindications for Sedation: none Current Medications Reviewed: Yes Notes The planned sedation has been discussed with the patient. Informed Consent was obtained. I have identified the patient, determined the appropriateness of sedation and have assessed the patient immediately prior to the procedure. All medicine(s) and interventions are by my order.
--- NOTE | 2020-08-12 17:27 | Post Anesthesia Assessment ---
Date of Service August 12, 2020 Post Sedation Assessment Vital Signs Temp Pulse Pulse Resp BP BP Pulse Ox 08/12/20 16:21 96 H 20 151/90 H 99 08/12/20 12:47 98.4 F 103 H 18 133/97 98 08/12/20 10:30 95 H 16 152/93 H 98 08/12/20 10:00 88 14 138/89 97 08/12/20 09:30 70 19 126/80 100 08/12/20 09:00 87 13 154/94 H 98 08/12/20 08:30 86 16 135/90 98 08/12/20 08:00 67 15 103/79 93 08/12/20 07:30 70 14 118/78 93 08/12/20 07:00 75 15 131/83 96 08/12/20 06:41 76 13 128/89 97 08/12/20 06:40 76 14 97 08/12/20 06:01 68 14 97 08/12/20 06:00 80 12 125/84 95 08/12/20 05:32 74 14 97 08/12/20 05:31 77 17 127/87 98 08/12/20 05:30 74 15 95 08/12/20 04:30 91 H 12 98 08/12/20 04:26 97.9 F 100 H 14 155/95 H 100 08/12/20 04:24 98 H 12 99 Recovery Score Activity: Moves 4 extremities Respiration: Deep Breath/Cough Circulation: +/-20% PreAnes Value Consciousness: Fully Awake Oxygen Saturation: O2 needed for >90% Discharge Sedation Level of Care: Fast Track Phase II Post Sedation Plan On clinical assessment, the patient appears to have tolerated the sedation without complications. Patient is recovering as anticipated. Patient will continue to be monitored by nursing and may be discharged when sedation discharge criteria are met per below protocol. Upon Completions of procedure up to 15 minutes continue every 5 minute vital signs and the P.A.R. score; then discharge to a Phase I or Fast Track to Phase II per the following guidelines: * Discharge Patient to appropriate Phase II area if PAR is 8 or greater or return to pre- procedure baseline. The post - procedure orders will be as directed. * If PAR score is less than 8 or not return to pre-procedure baseline then patient will follow Phase I monitoring till PAR is reached for Phase II. The Phase I may be done in procedure room or may call to secure a Phase I area. * If naloxone or flumazenil are used for reversal, hold in Phase I for continued monitoring from when last reversal dose was given for a minimum of 60 minutes or longer pending the nurse and/or physician discretion of patient condition before discharge to Phase II. Please call the Sedation Physician to re-evaluate and complete post-note for discharge to Phase II area. Do NOT discharge from procedure sedation or Phase 1 until post- sedation evaluation note is complete by procedure /sedation MD Sedation Discharge Instructions to be given to the patient at discharge to home.
--- NOTE | 2020-08-12 17:32 | Cardiac Catheterization ---
[facility] Data: Manager Clinical Services Cardiac Status Clinical evaluation leading to the procedure CAD Presenation: Unstable angina Anginal Classification: CCS IV Heart Failure: No Cardiogenic Shock within 24 Hours: No Cardiac Arrest within 24 Hours: No Imaging Studies Past 6 Months: Yes Stress Studies Past 6 Months: No Diagnostic Physicians Name: Bakari Chaudhry MD Status: Elective Closure Device Percutaneous Entry Location: Radial Closure Device: Radial Band Recommendations: Medical Therapy and/or Counseling Intraprocedure Events Significant Disection: No Perforation: No Cardiac Cath Procedure Full Procedure Date August 12, 2020 Pre-Procedure Diagnosis Pre-Procedure Diagnosis: Angina AUC Score AUC Score: 7 Post-Procedure Diagnosis Post-Procedure Diagnosis: Mild CAD Procedure(s) Performed Procedure(s) Performed: Coronary Angiography, Left Heart Cath and LV Angiography Crop Specialist Bakari Chaudhry MD Physiological Chemist(s) Fabio Estimated Blood Loss Estimated Blood Loss: 5 Medication(s) Medication(s): Fentanyl, Heparin, Lidocaine 1%, Nicardipine, Nitroglycerin and Versed Summary of Findings Indication: Unstable angina Access: 6 Fr slender right radial Catheters: [place] Findings: LM -medium caliber, no significant disease LAD -large caliber, 30 to 40% mid segment disease after takeoff of large D1. Distal vessel without significant disease. D1 with luminal irregularities Circumflex -medium caliber, no significant disease. RCA -dominant, large caliber, no disease. LVEDP -6 LVEF 55%, no regional wall motion abnormalities Arterial Closure: TR band Summary: 1. Mild nonobstructive coronary artery disease -30 to 40% mid LAD 2. Normal intracardiac filling pressure Recommendations: Further evaluation for noncardiac chest pain and continued ASCVD risk factor modification per Dr. Shields. Hemodynamics Rest Ao:: 121/79/97 Final Ao: 129/78/103 LV: 132/6 Recommendations Recommendations: Medical Therapy and/or Counseling Specimens Specimens: None Radiation Exposure (mGy) 853 Contrast (mls) 50 Fluids (cc crystalloids) Fluids (cc crystalloids): 95 Drains Drains: None Anesthesia Moderate Procedural Complication(s) None Disposition PCU I attest to the content of the Intraoperative Record and any orders documented therein. Any exceptions are noted below. SilvigenG Card Cath Procedure Codes Cardiac Catheterization Procedure 1: Cardiovascular Cath Procedures: 69998 Coronaries and LHC (+/-LV) Moderate Sedation Procedure 1: Sedation/Anesthesia: 27055 Mod Sedation by the same physician;Init15 Min Child Age 5 & Up PG Care Time/CCT Total # of Minutes Spent Total Time Spent with Patient: Total time spent is greater than 50% in coordination of care (as documented) at patient's floor/unit and/or counseling patient:
--- NOTE | 2020-08-12 17:41 | Communication Note ---
Date of Service: August 12, 2020 Cardiac catheterization without obstructive disease. No cardiac source for symptoms found.
[2020-08-12] MEDS ORDERED: SODIUM CHLORIDE 0.9% 1000ML 1,000 ML IV SCH (18:00)
[2020-08-12] MEDS: HYDROCORTISONE 10 MG TAB PO SCH (18:09)
[2020-08-12] MEDS ORDERED: MoRPHine SULFATE 2 MG/ML CARP IV PRN (19:10)
[2020-08-12] MEDS: buPROPion SR 100 MG TABCR PO SCH (20:43)
[2020-08-12] MEDS ORDERED: ALUMINUM/MAGNESIUM/SIMETH (MAALOX MAX) 30 ML UDC PO STA (22:24)
[2020-08-13 05:42] LABS: Basophils # (auto) 0.01 K/uL (0-0.2); Basophils % (auto) 0.1 %; Hemoglobin 13.2 g/dL (14.0-18.0); Immature Granulocytes # (auto) 0.01 K/uL (0.00-0.02); Immature Granulocytes % (auto) 0.1 %; Lymphocytes # (auto) 1.05 K/uL (1.2-3.4); Lymphocytes % (auto) 11.8 %; Mean Corpuscular Hemoglobin 30.7 pg (25-34); Mean Corpuscular Hgb Conc 34.7 g/dL (32-36); Mean Corpuscular Volume 88.4 fL (80-100); Mean Platelet Volume 10.5 fL (7.4-10.4); Monocytes # (auto) 0.32 K/uL (0.11-0.59); Monocytes % (auto) 3.6 %; Neutrophils # (auto) 7.48 K/uL (1.4-6.5); Neutrophils % (auto) 84.4 %; Platelet Count 207 K/uL (130-400); RDW Coefficient of Variation 12.6 % (11.5-14.5); RDW Standard Deviation 40.1 fL (36.4-46.3); White Blood Count 8.87 K/uL (4.8-10.8)
[2020-08-13 06:01] LABS: BUN Creatinine Ratio 12.7 (10-20); Calcium 8.6 mg/dl (8.5-10.1); Creatinine Clr Calc Pharmacy 95.2 ml/min; Est GFR (African American) 105.2; Est GFR (Non-African American) 90.8; Magnesium 2.4 mg/dl (1.8-2.4); Potassium 3.9 mmol/L (3.5-5.1)
[2020-08-13] MEDS ORDERED: ALUMINUM/MAGNESIUM SUSP 30 ML UDC PO PRN (08:08)
[2020-08-13] MEDS: buPROPion SR 100 MG TABCR PO SCH (08:56)
[2020-08-13] MEDS: HYDROCORTISONE 10 MG TAB PO SCH (09:40)
[2020-08-13] MEDS ORDERED: METOPROLOL SUCC 25MG EXT REL TAB PO SCH (10:15)
--- NOTE | 2020-08-13 11:06 | Hospitalist Progress Note ---
Date of Service August 13, 2020 Assessment & Plan (1) Chest pain: He was admitted with atypical chest pain Given the recent history of Covid positive it was thought that the cardiac pain may be secondary to Covid and he underwent emergent cardiac cath Cardiac cath revealed no obstructive disease: Findings: LM -medium caliber, no significant disease LAD -large caliber, 30 to 40% mid segment disease after takeoff of large D1. Distal vessel without significant disease. D1 with luminal irregularities Circumflex -medium caliber, no significant disease. RCA -dominant, large caliber, no disease. Appreciate cardiology input and recommendation He still complains to have some pain occasionally which seems to be secondary to musculoskeletal condition/anxiety pain He was started with the small dose of beta-christiano for blood pressure (2) Anxiety: Has lots of anxiety May have panic attack especially middle of the night Doubt any pheochromocytoma Was on benzodiazepines before with some problem of weaning off He does not want to take benzodiazepines anymore He has been on Effexor ER which was restarted and will continue (3) ADHD: (4) Hypertension: Small dose of beta-christiano added For hyperlipidemia He has been on WelChol Does not want to take any statin (5) COVID-19: Diagnosed positive Covid on around 20 July Repeat Covid test has been negative in this hospital He does not have any symptoms and any signs of Covid disease He will be discharged home this afternoon Admission and Anticipated Discharge Date Admission Date: August 12, 2020 Subjective 08/13/2020 The patient was seen and examined in telemetry unit He still complains of chest pain in the precordial areaHe still complains to have without any other associated symptoms Has anxiety and mentioned that occasionally he wakes up middle of the night with palpitation and sweating He also complained to have some shortness of breath at times with wheezing Review of Systems Review of Systems: All systems reviewed and are unremarkable except as noted below Cardiovascular: + chest pain (Precordial without any associated symptoms) Psychiatric: + anxiety; no irritability and no confusion Physical Exam Physical Exam: No apparent distress at rest Constitutional: well developed, well nourished and average body habitus; not in distress Eyes: PERRL, conjunctivae normal, anicteric sclerae ENMT: external ear and nose normal, oropharynx normal Neck: trachea midline, no thyromegaly Respiratory: no respiratory distress Auscultation: lungs clear to auscultation bilaterally Cardiovascular: Rate/Rhythm: regular rate and regular rhythm Heart Sounds: no murmur Extremities: no edema Precordial tenderness on palpation Gastrointestinal (Abdomen): Inspection/Auscultation: abdomen not distended Percussion/Palpation: abdomen soft; abdomen nontender Musculoskeletal: No acute arthritis in any joint Neurologic: Alert, awake and oriented x3. No focal sensory and/or motor deficit appreciated Psychiatric: Affect: + anxious affect Results & Data Results & Data ([facility]) Vital Signs (Past 12 Hours) Vital Signs Temp Pulse Resp BP BP Pulse Ox 08/13/20 10:58 36.6 C 78 18 143/86 H 95 08/13/20 07:55 36.4 C L 78 20 141/86 H 98 08/13/20 04:36 36.6 C 94 H 16 132/79 97 08/12/20 23:40 36.6 C 96 H 18 136/84 95 Laboratory Results Short CBC 08/13/20 Range/Units 05:22 WBC 8.87 (4.8-10.8) K/uL Hgb 13.2 L (14.0-18.0) g/dL Hct 38.0 L (42-52) % Plt Count 207 (130-400) K/uL BMP 08/13/20 05:22 Sodium 139 Potassium 3.9 D Chloride 108 H Carbon Dioxide 28 BUN 12 Creatinine 0.98 Glucose 129 H Calcium 8.6 Cardiac Enzymes 08/12/20 08/12/20 Range/Units 12:59 18:50 Troponin I < 0.015 < 0.015 (0-0.045) ng/ml Medications Administered Current Inpatient Medications Acetaminophen (Acetaminophen 325 Mg Tab) 650 mg PO Q4H PRN PRN Reason: Pain or Fever Stop: 09/11/20 12:46 Al Hydrox/Mg Hydrox/Simethicone (Aluminum/Magnesium Susp 30 Ml Udc) 30 ml PO Q 6H PRN PRN Reason: Dyspepsia Stop: 09/12/20 08:07 Last Admin: 08/13/20 08:57 Dose: 30 ml Documented by: Bupropion HCl (Bupropion Sr 100 Mg Tabcr) 100 mg PO BID [facility] Stop: 09/11/20 20:59 Last Admin: 08/13/20 08:56 Dose: 100 mg Documented by: Hydrocortisone (Hydrocortisone 10 Mg Tab) 10 mg PO QAM [facility] Stop: 09/11/20 12:59 Last Admin: 08/13/20 09:40 Dose: 10 mg Documented by: Metoprolol Succinate (Metoprolol Succ 25mg Ext Rel Tab) [facility] Stop: 09/12/20 10:14 Last Admin: 08/13/20 10:56 Dose: 25 mg Documented by: Morphine Sulfate (Morphine Sulfate 2 Mg/Ml Carp) 2 mg IV Q6 PRN PRN Reason: Pain Stop: 08/26/20 19:09 Last Admin: 08/12/20 21:14 Dose: 2 mg Documented by: Nitroglycerin (Nitroglycerin Sl 0.4 Mg/Tab Tab) 0.4 mg SL UD PRN PRN Reason: Chest Pain Stop: 09/11/20 12:46 Last Admin: 08/12/20 13:18 Dose: 0.4 mg Documented by: Ondansetron HCl (Ondansetron Inj 2 Mg/Ml 2 Ml Vial) 4 mg IV Q6H PRN PRN Reason: Nausea Stop: 09/11/20 12:46
--- NOTE | 2020-08-14 08:24 | Discharge Summary ---
Date of Service August 14, 2020 Admission HPI Per Admitting Provider DICTATED BY: Grayson Chan MD DATE OF ADMISSION: 08/12/2020 CHIEF COMPLAINT: Chest pain. HISTORY OF PRESENT ILLNESS: This is a 50-year-old male with past medical history significant for hyperlipidemia, ADHD, diabetic polyneuropathy, history of Lyme disease, recent diagnosis of COVID comes with chest pain. As per the patient, patient was diagnosed with COVID on 07/13/2020, but as per [facility] records, he was diagnosed on 07/20/2020 .Intially had some mild loss of sense of smell or taste and severe headaches and that's all resolved. His appetite is good, but he is having ongoing chest pain and shortness of breath. The patient says he started going to work about 1 week ago, but still is getting sweating, shortness of breath and chest pain with exertion and also palpitations. He feels that his heart rhythm is not regular. Last night, he woke up in the middle of night with heart pounding and chest pain and he was sweating and decided to come to the ER. In the ER, he received Ativan and Benadryl and his pain is somewhat relieved. Currently resting comfortably and hemodynamically stable. Labs were fine and CTA of chest showed no PE or any infiltrates. He had knee pain few days back, but that is resolved. Climbing steps 1 flight of stairs make him very short of breath and chest pain. The pain starts in left side of chest radiates to left arm and it takes about almost 2 hours to come back to normal, which is worrying him and he feels that he has 80-year-old heart now. Every morning he feels nauseous. No abdominal pain. Normal bowel and bladder movements. Denies any blood in stools or black stools. Currently, no headache, no blurred vision, no earache, no runny nose, no sore throat. Initially had some difficulty swallowing when he had COVID, but it is resolved now. Admission Exam Per Admitting Provider GENERAL: The patient is of moderate build, not in acute distress. VITAL SIGNS: Temperature 36.6, pulse 76, respiratory rate 13, blood pressure 128/89, oxygen 97% on room air. HEENT: No pallor, no icterus. Pupils equal, round, and reactive to light. Oral mucosa moist. NECK: No neck masses seen. CARDIOVASCULAR: S1, S2 heard, regular rate and rhythm, no murmur, no gallop. RESPIRATORY SYSTEM: Normal AP diameter. No accessory muscle use. No wheezing, no crackles. ABDOMEN: Soft, bowel sounds present, nontender, nondistended. CENTRAL NERVOUS SYSTEM: Cranial nerves II-XII grossly intact, nonfocal. EXTREMITIES: No edema, no erythema. Principal Diagnosis Atypical chest pain, status post cardiac cath without any obstructive disease, hypertension, anxiety state, history of ADHD Discharge Exam Constitutional well developed, well nourished and average body habitus; not in distress Eyes PERRL, conjunctivae normal, anicteric sclerae ENMT external ear and nose normal, oropharynx normal Neck trachea midline, no thyromegaly Respiratory no respiratory distress Auscultation: lungs clear to auscultation bilaterally Cardiovascular Rate/Rhythm: regular rate and regular rhythm Heart Sounds: no murmur Extremities: no edema Gastrointestinal (Abdomen) Inspection/Auscultation: abdomen not distended Percussion/Palpation: abdomen soft; abdomen nontender Psychiatric Affect: + anxious affect Discharge Data Allergies Allergy/AdvReac Type Severity Reaction Status Date / Time aspirin Allergy Intermediate HIVES Verified 08/12/20 04:59 ibuprofen Allergy Intermediate HIVES Verified 08/12/20 04:59 iopamidol Allergy Intermediate CONTRAST Verified 08/12/20 04:59 DYE--FELT LIKE SKIN WAS BURNING Consultations 08/12/20 05:36 ED Decision to Admit Stat 08/12/20 12:47 Consult Cardiology Routine Consult Case Management - Discharge Planning Routine Procedures Performed Operation Date: 08/12/20 16:30 Actual Procedures p Cath, Left with Cors and Vent - Jere Chaudhry MD s Cineradiography w/Routine Exam - Jere Chaudhry MD Ordered Studies 08/12/20 04:31 CT angio chest PE protocol Urgent 08/12/20 16:22 CL Cath Imgs for PACS use only Stat Hospital Course (1) Chest pain: He was admitted with atypical chest pain Given the recent history of Covid positive it was thought that the cardiac pain may be secondary to Covid and he underwent emergent cardiac cath Cardiac cath revealed no obstructive disease: Findings: LM -medium caliber, no significant disease LAD -large caliber, 30 to 40% mid segment disease after takeoff of large D1. Distal vessel without significant disease. D1 with luminal irregularities Circumflex -medium caliber, no significant disease. RCA -dominant, large caliber, no disease. Appreciate cardiology input and recommendation He still complains to have some pain occasionally which seems to be secondary to musculoskeletal condition/anxiety pain He was started with the small dose of beta-christiano for blood pressure (2) Anxiety: Has lots of anxiety May have panic attack especially middle of the night Doubt any pheochromocytoma Was on benzodiazepines before with some problem of weaning off He does not want to take benzodiazepines anymore He has been on Effexor ER which was restarted and will continue (3) ADHD: (4) Hypertension: Small dose of beta-christiano added For hyperlipidemia He has been on WelChol Does not want to take any statin (5) COVID-19: Diagnosed positive Covid on around 20 July Repeat Covid test has been negative in this hospital He does not have any symptoms and any signs of Covid disease He will be discharged home this afternoon Total Time Total Time Spent Total Time Spent (In Minutes): 35 minutes Total Time Includes: Examination of the Patient, Discharge Planning, Medication Reconciliation and Communication With Other Providers Discharge Plan Discharge Items Patient Disposition: Home - Self-Care Reason For Visit: CHEST PAIN Discharge Diagnosis: Atypical chest pain, status post cardiac cath without any obstructive disease, hypertension, anxiety state, history of ADHD Condition on Discharge: Good Activity: Resume your previous activity Non-emergency contact: Primary Care Provider Call non-emergency contact if: you have any medication questions and your symptoms worsen Follow-up/Referrals: Ganesh Da Silva, [Primary Care Provider] - (Your doctor's office will call with an appointment within 7 days) Diet: Regular Addtl Attending Provider Instructions: Please do not stop your Toprol-XL until consulting a doctor or your PCP You will need to have a follow-up with an outpatient psychiatrist Pending Studies at Discharge: No Stand-Alone Forms: My SubC Control, Smoking Cessation Medications and DC Order Prescriptions: New metoprolol succinate 25 mg Tablet Extended Release 24 Hr 25 mg PO QAM Qty: 30 RF: 0 bupropion HCl 100 mg Tablet Sustained-Release 12 Hr 100 mg PO BID Qty: 60 RF: 0 albuterol sulfate 90 mcg/actuation HFA aerosol inhaler 2 inh inhalation Q6H PRN (Reason: shortness of breath or wheezing) Qty: 8.5 RF: 0 Continued hydrocortisone 5 mg tablet 10 mg PO QAM RF: 0 multivitamin Tablet 1 tab PO QAM RF: 0 Vitamin A 5000 Iu 5,000 unit PO DAILY RF: 0 omega-3 fatty acids [Fish Oil Concentrate] 1,000 mg Capsule 1,000 mg PO DAILY RF: 0 Discharge Orders: Discharge Order (Routine); Ordered 08/13/20 Ordered By: Jo Deleon Admission Data Admit Date/Time: 08/12/20 06:40 Attending Provider: Jo Deleon Admit Provider: Grayson Chan Primary Care Provider: Ganesh Da Silva Other Providers: Grayson Chan ; Wild Shields ; Cuba Roche ; Saad Em ; Madhu Krishnamurthy ; Louis Small ; Jacky Harper ; Katy Leigh ; Asya Coats ; Shawn Thomas Other Interventions: Discharge Summary Assessment (RN) Last Done: 08/13/20 13:02
== END 2020-08-13 14:16 | disposition home or self-care (01) ==
LOC: 2S 04:10 → ED 04:10 → 2S 12:07